=== PATIENT | female | born 1995 | race Caucasian/White ===

== ENCOUNTER 2019-03-11 10:58 | Day surgery (SDC) | payer MEDICAID ==
[~2019-03-11] VITALS: Ht 160 cm; Wt 52.6 kg
[2019-03-11] MEDS ORDERED: LEVO0.1331 PO (12:06)
[2019-03-11] MEDS ORDERED: LIDOCAINE 2% 100 MG/5 ML UJET TP ONE (12:59)
[2019-03-11] MEDS ORDERED: fentaNYL 0.05 MG/ML VIAL ONE (12:59)
[2019-03-11] MEDS ORDERED: fentaNYL 0.05 MG/ML VIAL IVP ONE (13:25)
== END 2019-03-11 13:35 | disposition home or self-care (01) ==
LOC: MTU 10:58 → MDS 10:58
PROVIDERS: ATTEND Internal Medicine Gastroenterology
DX: K62.5 Hemorrhage of anus and rectum (principal); Z98.890 Other specified postprocedural states; Z72.89 Other problems related to lifestyle; Z79.899 Other long term (current) drug therapy; Z85.850 Personal history of malignant neoplasm of thyroid
CPT/HCPCS: 45378; 81025; J3010